=== PATIENT | female | born 1970 | race African-American/Black ===

== ENCOUNTER → 2016-05-19 | Outpatient (CLI) | payer BC ==
[2015-12-31 14:10] VITALS: BP 156/98
[~2016-05-19] MED LIST: CIPR500T94 PO; CYCL10TA2 PO; DOCU-27 PO; GABA-586 PO; HYDR25TA9 PO; cipro
--- NOTE | 2016-05-19 13:58 | RAD ---
DATE: 05/19/16 Exam performed:: Digital diagnostic left mammogram and left breast ultrasound History:: History of left breast mass, 6 months post biopsy Comparison:: Screening bilateral mammogram from 11/15/15 and left breast ultrasound from 11/18/15. Diagnostic left mammogram and limited ultrasound images performed on 12/02/25 were reviewed This study was interpreted with the benefit of Computerized Aided Detection (CAD). Findings: Left breast mammogram. Technique: CC and MLO views of the left breast are obtained. Findings: Nodules seen in the inferior medial left breast is redemonstrated. The biopsy clip is seen adjacent to the nodule. Ultrasound to follow. Left breast ultrasound findings: Sonographic evaluation of the left breast is performed in the inferior medial quadrant and images are obtained. There is a well-defined wider than taller hypoechoic nodule measuring measuring 1.1 x 0.7 cm at 9:30 o'clock position, 6 cm from the nipple.. Biopsy clip is seen adjacent to this nodule. There is also a well-defined hypoechoic wider than taller nodule measuring 1.8 x 1.3 x 0.7 cm in the left axilla. Both these findings are stable IMPRESSION: Hypoechoic nodule at 9:30 o'clock position as well as in the left axilla are stable. Note is made that the nodule at 9:30 o'clock position has been biopsied BI-RADS CATEGORY: 2 BENIGN FINDING(S) RECOMMENDED FOLLOW-UP: 12M 12 MONTH FOLLOW-UP PQRS compliance statement: Patient information was entered into a reminder system with a target due date for the next mammogram. Mammography is a sensitive method for finding small breast cancers, but it does not detect them all and is not a substitute for careful clinical examination. A negative mammogram does not negate a clinically suspicious finding and should not result in delay in biopsying a clinically suspicious abnormality. "Our facility is accredited by the [employer] Mammography Program."
== END | disposition home or self-care (01) ==
LOC: MAMMO 13:02
PROVIDERS: ATTEND Surgery
DX: D24.2 Benign neoplasm of left breast (principal); N63 Unspecified lump in breast
CPT/HCPCS: 76641; G0206; 77065

== ENCOUNTER 2016-10-02 07:24 | Emergency (ER) | payer BC ==
[~2016-10-02 07:24] MED LIST changes: +DOCU-109 PO; -DOCU-27 PO
[2016-10-02 07:39] LABS: BILIRUBIN,URINE NEGATIVE (NEG); GLUCOSE,URINE NEGATIVE (NEG); NITRITE,URINE NEGATIVE (NEG); PH,URINE 6.5; PROTEIN,URINE 30 mg/dL (NEG-TRACE)
--- NOTE | 2016-10-02 07:53 | PHYS DOC ---
Past Medical History Past Medical History: Hypertension Past Surgical History: Cholecystectomy, Hysterectomy, Other Additional Past Surgical Histo: L BREAST BX Alcohol Use: None Drug Use: Marijuana Adult General Chief Complaint Chief Complaint: ABDOMINAL PAIN HPI HPI Patient is a 46 year old female presents to the emergency department with complaints of epigastric discomfort. She states she has had this same pain, constantly, for 4 weeks. Since states that she has increased discomfort in the morning when she drinks coffee or Pepsi. She states that throughout the day as she ingest coffee, soda the pain increases. . She's had previous evaluation in the emergency department as well as at the urgent care and at that time she was diagnosed with urinary tract infection. Patient states that she fears the pain may be caused by her daily use of marijuana. He states that she tried to stop smoking cigarettes and the pain seemed to intensify. She states there is no correlation to the pain with food ingestion or lack of ingestion, use of spicy foods, coffee,etc. She denies alcohol use but does use tobacco. She denies fever , nausea, vomiting, diarrhea. States last normal bowel movement was 2 weeks ago. Review of Systems Review of Systems Constitutional: Denies fever or chills [] Eyes: Denies change in visual acuity, redness, or eye pain [] HENT: Denies nasal congestion or sore throat [] Respiratory: Denies cough or shortness of breath [] Cardiovascular: No additional information not addressed in HPI [] GI: Complains of epigastric burning. Denies nausea, vomiting, bloody stools or diarrhea [] : Denies dysuria or hematuria [] Musculoskeletal: Denies back pain or joint pain [] Integument: Denies rash or skin lesions [] Neurologic: Denies headache, focal weakness or sensory changes [] Endocrine: Denies polyuria or polydipsia [] Current Medications Current Medications Current Medications Medications (Trade) Dose Ordered Sig/Letty Start Time Stop Time Status Last Admin Dose Admin Multi-Ingredient Mouthwash/Gargle (Gi Cocktail Single Dose) 15 ml 1X ONCE 10/02/16 08:00 10/02/16 08:01 DC 10/02/16 07:56 15 ML Allergies Allergies Allergies Coded Allergies Type Severity Reaction Last Updated Verified codeine Allergy Severe Anaphylaxis 12/10/14 Yes Physical Exam Physical Exam Constitutional: Well developed, well nourished, no acute distress, non-toxic appearance. [] HENT: Normocephalic, atraumatic, bilateral external ears normal, oropharynx moist, no oral exudates, nose normal. [] Neck: Normal range of motion, no tenderness, supple Cardiovascular:Heart rate regular rhythm, no murmur [] Lungs & Thorax: Bilateral breath sounds clear to auscultation [] Abdomen: Mild tenderness epigastric region. Bowel sounds normal, soft, no masses, no pulsatile masses. [] Skin: Warm, dry, no erythema, no rash. [] Back: No tenderness, no CVA tenderness. [] Extremities: No tenderness, no cyanosis, no clubbing, ROM intact, no edema. [] Neurologic: Alert and oriented X 3, normal motor function, normal sensory function, no focal deficits noted. [] Psychologic: Affect normal, judgement normal, mood normal. [] Current Patient Data Vital Signs Vital Signs Date Time Temp Pulse Resp B/P (MAP) Pulse Ox O2 Delivery O2 Flow Rate FiO2 10/02/16 07:30 99.2 73 16 158/85 (109) 99 Room Air 99.2 Lab Values Laboratory Tests Test 10/02/16 07:28 Urine Collection Type Void Urine Color Yellow Urine Clarity Clear Urine pH 6.5 Urine Specific [place] 1.020 Urine Protein 30 mg/dL (NEG-TRACE) Urine Glucose (UA) Negative mg/dL (NEG) Urine Ketones (Stick) Negative mg/dL (NEG) Urine Blood Moderate (NEG) Urine Nitrite Negative (NEG) Urine Bilirubin Negative (NEG) Urine Urobilinogen Dipstick 1.0 mg/dL (0.2 mg/dL) Urine Leukocyte Esterase Small (NEG) Urine RBC 20-40 /HPF (0-2) Urine WBC Occ /HPF (0-4) Urine Squamous Epithelial Cells Few /LPF Urine Bacteria 0 /HPF (0-FEW) Urine Mucus Marked /LPF EKG EKG [] Radiology/Procedures Radiology/Procedures [] Course & Med Decision Making Course & Med Decision Making Re-Evaluation: Patient reports complete relief from epigastric discomfort after taking GI cocktail. She has no complaints of abdominal pain, nausea, vomitingPertinent Labs and Imaging studies reviewed. (See chart for details) [] Dragon Disclaimer Dragon Disclaimer This electronic medical record was generated, in whole or in part, using a voice recognition dictation system. Departure Departure Impression: Primary Impression: Gastritis Disposition: 01 HOME, SELF-CARE Condition: STABLE Referrals: EULOGIO WOODS MD (PCP) Patient Instructions: Diet for Peptic Ulcer Disease, Gastrin Scripts Famotidine (PEPCID) 20 Mg Tablet 20 MG PO BID, #60 TAB Prov: EMANI NOEL APRN 10/02/16 Sucralfate (CARAFATE) 1 Gm Tablet 1 TAB PO QID, #120 TAB 1 Refill Prov: EMANI NOEL APRN 10/02/16 EMANI NOEL APRN Oct 02, 2016 07:53
[2016-10-02] MEDS ORDERED: LIDO:MAALOX:DONNATAL 1:1:1 15 ML SINGLE DOSE SWSW ONE (08:00)
[2016-10-02 08:09] LABS: BACTERIA,URINE 0 /HPF (0-FEW); RBC,URINE 20-40 /HPF (0-2); SQUAMOUS EPITHELIAL CELL,UR FEW /LPF; WBC,URINE OCC /HPF (0-4)
[2016-10-02] MEDS ORDERED: SUCR1TAB35 PO (08:17)
[2016-10-02] MEDS ORDERED: FAMO-63 PO (08:17)
[2016-10-02 08:29] VITALS: BP 145/104
[2016-10-02 09:06] LABS: NEG OBC UR NEG; POS OBC UR POS
== END 2016-10-02 08:30 | disposition home or self-care (01) ==
LOC: ER 07:24
DX: K29.70 Gastritis, unspecified, without bleeding (principal); I10 Essential (primary) hypertension; F12.10 Cannabis abuse, uncomplicated; F17.210 Nicotine dependence, cigarettes, uncomplicated; Z88.5 Allergy status to narcotic agent; Z90.49 Acquired absence of other specified parts of digestive tract; Z90.710 Acquired absence of both cervix and uterus
CPT/HCPCS: 81001; 81025; 99283

== ENCOUNTER 2017-03-12 08:44 | Emergency (ER) | payer BC ==
[~2017-03-12 08:44] MED LIST changes: +FAMO-63 PO; +SUCR1TAB35 PO
[2017-03-12] MEDS ORDERED: ASPIRIN 325 MG TABLET PO ONE (09:00)
--- NOTE | 2017-03-12 09:03 | PHYS DOC ---
Past Medical History Past Medical History: Hypertension Past Surgical History: Cholecystectomy, Hysterectomy, Other Additional Past Surgical Histo: L BREAST BX Alcohol Use: None Drug Use: Marijuana Adult General Chief Complaint Chief Complaint: CHEST PAIN HPI HPI Patient is a 46 year old female with history of hypertension smoking addiction who presents today with a sharp 6 out of 10 left-sided chest pain that began 2 days ago. Patient states the pain radiates to the left lateral neck as well as left shoulder. Patient states the pain is worsened with coughing, deep breaths. Patient states she is also been coughing for the last 2 weeks. Patient denies any fever. Denies any shortness of breath. Patient denies anything alleviating her pain. Review of Systems Review of Systems Constitutional: Denies fever or chills [] Eyes: Denies change in visual acuity, redness, or eye pain [] HENT: Denies nasal congestion or sore throat [] Respiratory: cough denies shortness of breath [] Cardiovascular: Left chest pain radiating to the left upper extremity. GI: Denies abdominal pain, nausea, vomiting, bloody stools or diarrhea [] : Denies dysuria or hematuria [] Musculoskeletal: Denies back pain or joint pain [] Integument: Denies rash or skin lesions [] Neurologic: Denies headache, focal weakness or sensory changes [] All other systems were reviewed and found to be within normal limits, except as documented in this note. Current Medications Current Medications Current Medications Medications (Trade) Dose Ordered Sig/[facility] Start Time Stop Time Status Last Admin Dose Admin Aspirin (Jung Aspirin) 325 mg 1X ONCE 03/12/17 09:00 03/12/17 09:01 DC 03/12/17 10:07 325 MG Allergies Allergies Allergies Coded Allergies Type Severity Reaction Last Updated Verified codeine Allergy Severe Anaphylaxis 12/10/14 Yes Physical Exam Physical Exam Constitutional: Well developed, well nourished, no acute distress, non-toxic appearance. [] HENT: Normocephalic, atraumatic, bilateral external ears normal, oropharynx moist, no oral exudates, nose normal. [] Eyes: PERRLA, EOMI, conjunctiva normal, no discharge. [] Neck: Normal range of motion, no tenderness, supple, no stridor. [] Cardiovascular:Heart rate regular rhythm, no murmur [] Lungs & Thorax: Bilateral breath sounds clear to auscultation [] Abdomen: Bowel sounds normal, soft, no tenderness, no masses, no pulsatile masses. [] Skin: Warm, dry, no erythema, no rash. [] Back: No tenderness, no CVA tenderness. [] Extremities: No tenderness, no cyanosis, no clubbing, ROM intact, no edema. [] Neurologic: Alert and oriented X 3, normal motor function, normal sensory function, no focal deficits noted. [] Psychologic: Affect normal, judgement normal, mood normal. [] Current Patient Data Vital Signs Vital Signs Date Time Temp Pulse Resp B/P (MAP) Pulse Ox O2 Delivery O2 Flow Rate FiO2 03/12/17 10:06 68 18 163/83 (109) 97 Room Air 03/12/17 08:57 98.1 98.1 Lab Values Laboratory Tests Test 03/12/17 09:12 03/12/17 09:32 White Blood Count 12.8 x10^3/uL (4.0-11.0) H Red Blood Count 4.64 x10^6/uL (3.50-5.40) Hemoglobin 15.1 g/dL (12.0-15.5) Hematocrit 43.9 % (36.0-47.0) Mean Corpuscular Volume 95 fL (79-100) Mean Corpuscular Hemoglobin 33 pg (25-35) Mean Corpuscular Hemoglobin Concent 34 g/dL (31-37) Red Cell Distribution Width 13.4 % (11.5-14.5) Platelet Count 373 x10^3/uL (140-400) Neutrophils (%) (Auto) 64 % (31-73) Lymphocytes (%) (Auto) 31 % (24-48) Monocytes (%) (Auto) 4 % (0-9) Eosinophils (%) (Auto) 1 % (0-3) Basophils (%) (Auto) 1 % (0-3) Neutrophils # (Auto) 8.1 x10^3uL (1.8-7.7) H Lymphocytes # (Auto) 4.0 x10^3/uL (1.0-4.8) Monocytes # (Auto) 0.5 x10^3/uL (0.0-1.1) Eosinophils # (Auto) 0.2 x10^3/uL (0.0-0.7) Basophils # (Auto) 0.1 x10^3/uL (0.0-0.2) Prothrombin Time 11.9 SEC (11.7-14.0) Prothrombin Time INR 0.9 (0.8-1.1) D-Dimer (Randi) 0.28 ug/mlFEU (0.00-0.50) Sodium Level 137 mmol/L (136-145) Potassium Level 3.8 mmol/L (3.5-5.1) Chloride Level 105 mmol/L (98-107) Carbon Dioxide Level 25 mmol/L (21-32) Anion Gap 7 (6-14) Blood Urea Nitrogen 7 mg/dL (7-20) Creatinine 0.6 mg/dL (0.6-1.0) Estimated GFR (Cockcroft-Gault) 130.8 BUN/Creatinine Ratio 12 (6-20) Glucose Level 89 mg/dL (70-99) Calcium Level 9.0 mg/dL (8.5-10.1) Magnesium Level 1.9 mg/dL (1.8-2.4) Total Bilirubin 0.4 mg/dL (0.2-1.0) Aspartate Amino Transferase (AST) 16 U/L (15-37) Alanine Aminotransferase (ALT) 19 U/L (14-59) Alkaline Phosphatase 144 U/L (46-116) H Creatine Kinase 156 U/L (26-192) Creatine Kinase MB (Mass) 0.5 ng/mL (0.0-3.6) Creatine Kinase MB Relative Index 0.3 % (0-4) Troponin I Quantitative < 0.017 ng/mL (0.000-0.055) UA-Gzo-K-Type Natriuretic Peptide 70 pg/mL (0-124) Total Protein 7.4 g/dL (6.4-8.2) Albumin 3.9 g/dL (3.4-5.0) Albumin/Globulin Ratio 1.1 (1.0-1.7) Thyroid Stimulating Hormone (TSH) 0.712 uIU/mL (0.358-3.74) Urine Collection Type Unknown Urine Color Yellow Urine Clarity Clear Urine pH 7.0 Urine Specific [place] 1.015 Urine Protein Negative mg/dL (NEG-TRACE) Urine Glucose (UA) Negative mg/dL (NEG) Urine Ketones (Stick) Negative mg/dL (NEG) Urine Blood Large (NEG) Urine Nitrite Negative (NEG) Urine Bilirubin Negative (NEG) Urine Urobilinogen Dipstick 1.0 mg/dL (0.2 mg/dL) Urine Leukocyte Esterase Negative (NEG) Urine RBC 11-20 /HPF (0-2) Urine WBC 0 /HPF (0-4) Urine Bacteria 0 /HPF (0-FEW) Urine Opiates Screen Neg (NEG) Urine Methadone Screen Neg (NEG) Urine Barbiturates Neg (NEG) Urine Phencyclidine Screen Neg (NEG) Urine Amphetamine/Methamphetamine Neg (NEG) Urine Benzodiazepines Screen Neg (NEG) Urine Cocaine Screen Neg (NEG) Urine Cannabinoids Screen Pos (NEG) Urine Ethyl Alcohol Neg (NEG) Laboratory Tests 03/12/17 09:12 Laboratory Tests 03/12/17 09:12 EKG EKG 08:[address] Arenas sinus rhythm heart rate 68 QRS interval 84 no STEMI Radiology/Procedures Radiology/Procedures []PROCEDURE: PORTABLE CHEST 1V Chest x-ray Indication: Chest pain, cough and shortness of breath for 2 days. Technique: Portable AP upright chest x-ray Comparison: Previous study from 2013. Findings: Heart is top normal in size. Lungs are clear. No pneumothorax or pleural effusion. Visualized bony thorax is within normal limits. Impression: No acute cardiopulmonary process. DICTATED and SIGNED BY: ISIDORO MARSHALL DO DATE: 03/12/17918 CC: EULOGIO WOODS MD; ALISTAIR ZAVALA APRN ~ Course & Med Decision Making Course & Med Decision Making Pertinent Labs and Imaging studies reviewed. (See chart for details) This is a 46 year old female with history of smoking who presents today with left-sided chest pain radiating to the left upper extremity that began 2 days ago. Patient's also complaining of a cough for 2 weeks. Patient was encouraged to consider smoking cessation. Cardiac workup was initiated. Normal EKG documented. Patient has history of smoking and was encouraged to consider smoking cessation. Cardiac workup is negative. Chest x-ray is negative for any acute findings. Consulted with Dr. Conner, she requested patient to be discharged and follow-up with the clinic as soon as possible. Patient was discharged with Tessalon Perles and albuterol inhaler. She is also put on prednisone for 5 days. Dragon Disclaimer Dragon Disclaimer This electronic medical record was generated, in whole or in part, using a voice recognition dictation system. Departure Departure Impression: Primary Impression: Chest pain Additional Impressions: Acute bronchitis Smoking addiction Disposition: ADMITTED INPATIENT Condition: STABLE Referrals: UELOGIO WOODS MD (PCP) Call her office today and set up a follow-up appointment as soon as possible Patient Instructions: Acute Bronchitis, Chest Pain (Nonspecific), Smoking Cessation Additional Instructions: You were seen for chest pain and a cough. Your cardiac workup is negative. We encourage you to consider smoking cessation. Please contact your primary care doctor's office today and set up a follow-up appointment. Please consider smoking cessation. Take the prescribed medicines as ordered. Come back to the ED at any point your symptoms worsen. Scripts Prednisone (PREDNISONE) 50 Mg Tablet 1 TAB PO DAILY, #5 TAB Prov: ALISTAIR ZAVALA APRN 03/12/17 Benzonatate (TESSALON PERLE) 100 Mg Capsule 1 CAP PO TID, #30 CAP Prov: ALISTAIR ZAVALA APRN 03/12/17 Albuterol Sulfate (Proair Respiclick) 90 Mcg Aer.pow.ba 1 PUFF IH PRN Q6HRS Y for SHORTNESS OF BREATH, #1 INHALER Prov: ALISTAIR ZAVALA APRN 03/12/17 Problem Qualifiers Primary Impression: Chest pain Chest pain type: unspecified Qualified Codes: R07.9 - Chest pain, unspecified Additional Impressions: Acute bronchitis Bronchitis organism: unspecified organism Qualified Codes: J20.9 - Acute bronchitis, unspecified ALISTAIR ZAVALA APRN Mar 12, 2017 09:03
[2017-03-12 09:21] LABS: BASO # 0.1 x10^3/uL (0.0-0.2); BASO % 1 % (0-3); EOS % 1 % (0-3); HEMATOCRIT 43.9 % (36.0-47.0); HEMOGLOBIN 15.1 g/dL (12.0-15.5); LYMPH % 31 % (24-48); MEAN CORPUSCULAR HEMOGLOBIN 33 pg (25-35); MEAN CORPUSCULAR HGB CONC 34 g/dL (31-37); MEAN CORPUSCULAR VOLUME 95 fL (79-100); MONO % 4 % (0-9); NEUT % 64 % (31-73); PLATELET COUNT 373 x10^3/uL (140-400); RED BLOOD COUNT 4.64 x10^6/uL (3.50-5.40); RED CELL DISTRIBUTION WIDTH 13.4 % (11.5-14.5); WHITE BLOOD COUNT 12.8 x10^3/uL (4.0-11.0)
--- NOTE | 2017-03-12 09:24 | RAD ---
Chest x-ray Indication: Chest pain, cough and shortness of breath for 2 days. Technique: Portable AP upright chest x-ray Comparison: Previous study from 2014. Findings: Heart is top normal in size. Lungs are clear. No pneumothorax or pleural effusion. Visualized bony thorax is within normal limits. Impression: No acute cardiopulmonary process.
[2017-03-12 09:37] LABS: CREATININE 0.6 mg/dL (0.6-1.0); GFR 130.8; POTASSIUM 3.8 mmol/L (3.5-5.1)
[2017-03-12 09:39] LABS: ALBUMIN 3.9 g/dL (3.4-5.0); ALBUMIN/GLOBULIN RATIO 1.1 (1.0-1.7); MAGNESIUM 1.9 mg/dL (1.8-2.4); TOTAL BILIRUBIN 0.4 mg/dL (0.2-1.0); TOTAL PROTEIN 7.4 g/dL (6.4-8.2)
[2017-03-12 09:42] LABS: INR 0.9 (0.8-1.1); PROTHROMBIN TIME PATIENT 11.9 SEC (11.7-14.0)
[2017-03-12 09:44] LABS: BILIRUBIN,URINE NEGATIVE (NEG); GLUCOSE,URINE NEGATIVE (NEG); NITRITE,URINE NEGATIVE (NEG); PROTEIN,URINE NEGATIVE (NEG-TRACE)
[2017-03-12 09:48] LABS: CKMB MASS 0.5 ng/mL (0.0-3.6)
[2017-03-12 09:54] LABS: BARBITURATES NEG (NEG); BENZODIAZEPINES NEG (NEG); CANNABINOIDS POS (NEG); COCAINE NEG (NEG); METHADONE NEG (NEG); OPIATES NEG (NEG); PHENCYCLIDINE NEG (NEG)
[2017-03-12 09:55] LABS: BACTERIA,URINE 0 /HPF (0-FEW); WBC,URINE 0 /HPF (0-4)
--- NOTE | 2017-03-12 10:51 | EKG ---
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
[2017-03-12] MEDS ORDERED: PRED50TA PO (11:14)
[2017-03-12] MEDS ORDERED: PROAIR RESPICL90 MCG IH (11:14)
[2017-03-12] MEDS ORDERED: BENZ100C PO (11:14)
[2017-03-12 11:20] VITALS: BP 151/70
== END 2017-03-12 11:32 | disposition home or self-care (01) ==
LOC: ER 08:44
DX: R07.89 Other chest pain (principal); J20.9 Acute bronchitis, unspecified; F17.200 Nicotine dependence, unspecified, uncomplicated; I10 Essential (primary) hypertension; Z90.49 Acquired absence of other specified parts of digestive tract; Z90.710 Acquired absence of both cervix and uterus; Z88.5 Allergy status to narcotic agent
CPT/HCPCS: 36415; 71010; 80053; 80307; 81001; 82553; 83735; 83880; 84443; 84484; 85025; 85379; 85610; 93005; 99285-25; G0479

== ENCOUNTER 2017-11-23 07:51 | Emergency (ER) | payer BC ==
[2017-11-23 08:10] LABS: URINE HCG POC HCG NEGATIVE (Negative)
[2017-11-23 08:13] LABS: BILIRUBIN,URINE NEGATIVE (NEG); CLARITY,URINE CLEAR; COLOR,URINE YELLOW; GLUCOSE,URINE NEGATIVE (NEG); NITRITE,URINE NEGATIVE (NEG); PROTEIN,URINE 30 mg/dL (NEG-TRACE)
[2017-11-23 08:15] LABS: ADD MAN DIFF? NO
[2017-11-23 08:22] LABS: BARBITURATES NEG (NEG); BENZODIAZEPINES NEG (NEG); CANNABINOIDS POS (NEG); COCAINE NEG (NEG); METHADONE NEG (NEG); OPIATES NEG (NEG); PHENCYCLIDINE NEG (NEG)
[2017-11-23 08:23] LABS: AMPHETAMINE/METHAMPHETAMINE NEG (NEG); BASO # 0.1 x10^3/uL (0.0-0.2); BASO % 1 % (0-3); EOS # 0.2 x10^3/uL (0.0-0.7); EOS % 1 % (0-3); ETHANOL, URINE NEG (NEG); HEMATOCRIT 45.7 % (36.0-47.0); HEMOGLOBIN 15.7 g/dL (12.0-15.5); LYMPH # 3.8 x10^3/uL (1.0-4.8); LYMPH % 28 % (24-48); MEAN CORPUSCULAR HEMOGLOBIN 33 pg (25-35); MEAN CORPUSCULAR HGB CONC 34 g/dL (31-37); MEAN CORPUSCULAR VOLUME 95 fL (79-100); MONO # 0.5 x10^3/uL (0.0-1.1); MONO % 4 % (0-9); NEUT # 9.1 x10^3uL (1.8-7.7); NEUT % 66 % (31-73); PLATELET COUNT 406 x10^3/uL (140-400); RED BLOOD COUNT 4.84 x10^6/uL (3.50-5.40); RED CELL DISTRIBUTION WIDTH 13.5 % (11.5-14.5); WHITE BLOOD COUNT 13.7 x10^3/uL (4.0-11.0)
[2017-11-23 08:28] LABS: ANION GAP 7 (6-14); BLOOD UREA NITROGEN 7 mg/dL (7-20); BUN/CREATININE RATIO 10 (6-20); CALCIUM 8.8 mg/dL (8.5-10.1); CARBON DIOXIDE 28 mmol/L (21-32); CHLORIDE 105 mmol/L (98-107); CREATININE 0.7 mg/dL (0.6-1.0); GLUCOSE 104 mg/dL (70-99); POTASSIUM 3.7 mmol/L (3.5-5.1); SODIUM 140 mmol/L (136-145)
[2017-11-23] MEDS ORDERED: CONTRAST GIVEN. MC (08:30)
[2017-11-23 08:32] LABS: BACTERIA,URINE FEW /HPF (0-FEW); SQUAMOUS EPITHELIAL CELL,UR OCC /LPF
[2017-11-23 08:34] LABS: ALBUMIN 3.6 g/dL (3.4-5.0); ALBUMIN/GLOBULIN RATIO 0.9 (1.0-1.7); ALK PHOS 146 U/L (46-116); ALT (SGPT) 25 U/L (14-59); AST (SGOT) 20 U/L (15-37); LIPASE 124 U/L (73-393); TOTAL BILIRUBIN 0.4 mg/dL (0.2-1.0); TOTAL PROTEIN 7.6 g/dL (6.4-8.2)
[2017-11-23 09:11] LABS: TROPONINI < 0.017 ng/mL (0.000-0.055)
[2017-11-23] MEDS: IOHEXOL 240 MG/ML 50ML VIAL. PO (09:36)
[2017-11-23] MEDS: IOHEXOL 300 MG/ML 100ML VIAL. IV (09:36)
== END 2017-11-23 10:46 | disposition home or self-care (01) ==
LOC: ER 07:51
DX: G89.29 Other chronic pain (principal); R10.13 Epigastric pain; R11.2 Nausea with vomiting, unspecified; R31.9 Hematuria, unspecified; D75.1 Secondary polycythemia; Z71.6 Tobacco abuse counseling; K59.00 Constipation, unspecified; I10 Essential (primary) hypertension; Z90.49 Acquired absence of other specified parts of digestive tract; Z90.710 Acquired absence of both cervix and uterus; Z88.5 Allergy status to narcotic agent
CPT/HCPCS: 36415; 74177; 80053; 80307; 81001; 81025; 83690; 84484; 85025; 87086; 99285-25; Q9966; Q9967

== ENCOUNTER 2018-01-03 10:21 | Emergency (ER) | payer BC ==
[~2018-01-03] VITALS: Ht 170.2 cm; Wt 84.8 kg
[~2018-01-03 10:21] MED LIST changes: +BENZ100C PO; +MAGN296S9 PO; +PRED50TA PO; +PROAIR RESPICL90 MCG IH; +Percogesic PO; +RANI150T21 PO
[2018-01-03 10:45] VITALS: BP 147/83
[2018-01-03] MEDS ORDERED: HYDROcodone/APAP 5/325MG 1 TAB TABLET ONE (11:44)
[2018-01-03] MEDS ORDERED: IBUPROFEN 800 MG TABLET. PO ONE (11:45)
--- NOTE | 2018-01-03 11:49 | RAD ---
EXAM: Left elbow, 2 views. HISTORY: Nontraumatic pain and swelling. COMPARISON: None. FINDINGS: 2 views left elbow are obtained. There is no fracture, dislocation or subluxation. There is no joint effusion. IMPRESSION: No acute osseous finding. Electronically signed by: So Mackey MD (01/03/2018 11:46 AM) [facility]
--- NOTE | 2018-01-03 11:50 | RAD ---
EXAM: 2 views left wrist DATE: 01/03/2018 11:29 AM INDICATION: NO TRAUMA, LEFT WRIST PAIN COMPARISON: No Prior FINDINGS/ IMPRESSION: No evidence of acute fracture or dislocation. Joint spaces are preserved without significant degenerative/proliferative change. No significant soft tissue swelling. Electronically signed by: Anton Denise MD (01/03/2018 11:46 AM) [id number]
[2018-01-03] MEDS ORDERED: HYDROcodone/APAP 5/325MG 1 TAB TABLET PO ONE (12:00)
[2018-01-03] MEDS ORDERED: HYDR-971 PO (12:14)
[2018-01-03] MEDS ORDERED: IBUP-1060 PO (12:14)
--- NOTE | 2018-01-03 12:43 | PHYS DOC ---
Past Medical History Past Medical History: Hypertension, Other Additional Past Medical Histor: NEUROPATHY Past Surgical History: Cholecystectomy, Hysterectomy, Other Additional Past Surgical Histo: L BREAST BX Additional Information: 1 ppd Alcohol Use: None Drug Use: None Adult General Chief Complaint Chief Complaint: UPPER EXTREMITY PAIN [facility] HPI Patient is a 47 year old female who presents with left arm pain. The patient does have a known history of neuropathy, normally in the lower extremities. She states she awoke this morning having pain in the left arm that feels similar to her neuropathy symptoms. Pain is located from the elbow along the ulnar aspect and into the wrist. She awoke this morning with the pain and did not have any recent trauma or overuse or strenuous activity. She has not had a fever or chills. She denies additional symptoms today. Review of Systems Review of Systems Constitutional: Denies fever Eyes: Denies change in visual acuity HENT: Denies nasal congestion Respiratory: Denies cough or shortness of breath Cardiovascular: No additional information not addressed in HPI Musculoskeletal: Denies back pain or joint pain Integument: Denies rash Neurologic: Denies headache All other systems were reviewed and found to be within normal limits, except as documented in this note. Current Medications Current Medications Current Medications Medications (Trade) Dose Ordered Sig/Letty Start Time Stop Time Status Last Admin Dose Admin Acetaminophen/ Hydrocodone Bitart (Lortab 5/325) 1 tab STK-MED ONCE 01/03/18 11:44 01/03/18 11:45 DC Ibuprofen (Motrin) 800 mg 1X ONCE 01/03/18 11:45 01/03/18 11:46 DC 01/03/18 11:43 800 MG Allergies Allergies Allergies Coded Allergies Type Severity Reaction Last Updated Verified codeine Allergy Severe Anaphylaxis 01/03/18 Yes Physical Exam Physical Exam Constitutional: Well developed, well nourished, no acute distress, non-toxic appearance HENT: Normocephalic, atraumatic, bilateral external ears normal, oropharynx moist Eyes: PERRLA, EOMI, conjunctiva normal Neck: Normal range of motion Cardiovascular:Heart rate regular rhythm Lungs & Thorax: Bilateral breath sounds clear to auscultation Abdomen: Bowel sounds normal, soft Skin: Warm, dry, no erythema Extremities: normal exam of the left upper extremity other than some soft tissue swelling about the wrist. Distal capillary refill is less than 2 seconds. Sensation to light touch is intact over all dermatomes. She has 5 over 5 motor strength. Neurologic: Alert and oriented X 3 Psychologic: Affect normal Current Patient Data Vital Signs Vital Signs Date Time Temp Pulse Resp B/P (MAP) Pulse Ox O2 Delivery O2 Flow Rate FiO2 01/03/18 11:45 18 Room Air 01/03/18 10:45 98.0 64 147/83 (104) 100 98.0 EKG EKG [] Radiology/Procedures Radiology/Procedures [] Course & Med Decision Making Course & Med Decision Making Pertinent Labs and Imaging studies reviewed. (See chart for details) Patient is evaluated in the fast track for atraumatic left arm pain. Overall, her physical exam is benign. Plain film imaging is negative. There are no signs of joint inflammation. There are no signs of septic joint. Plan is for discharge home. The patient is given ibuprofen and [place] for severe pain. She is advised to follow-up with her primary care doctor. Dragon Disclaimer Dragon Disclaimer This electronic medical record was generated, in whole or in part, using a voice recognition dictation system. Departure Departure Impression: Primary Impression: Arm pain Disposition: 01 HOME, SELF-CARE Condition: GOOD Patient Instructions: Contusion Scripts Hydrocodone/Apap 5-325 (NORCO 5-325 TABLET) 1 Each Tablet 1-2 EACH PO PRN Q6HRS PRN for severe pain, #20 as needed for pain Prov: ANDREINA MOYA DO 01/03/18 Ibuprofen (IBUPROFEN) 800 Mg Tablet 800 MG PO PRN TID PRN for PAIN, #30 TAB take with food or milk to avoid upsetting stomach Prov: ANDREINA MOYA DO 01/03/18 ANDREINA MOYA DO Jan 03, 2018 12:43
== END 2018-01-03 12:49 | disposition home or self-care (01) ==
LOC: ER 10:21
DX: M79.602 Pain in left arm (principal); I10 Essential (primary) hypertension; F17.200 Nicotine dependence, unspecified, uncomplicated; Z90.49 Acquired absence of other specified parts of digestive tract; Z90.710 Acquired absence of both cervix and uterus; Z88.5 Allergy status to narcotic agent
CPT/HCPCS: 73070; 73100; 99284

== ENCOUNTER 2019-02-24 17:16 | Emergency (ER) | payer BC ==
[~2019-02-24] VITALS: Ht 167.6 cm; Wt 79.4 kg
[~2019-02-24 17:16] MED LIST changes: -GABA-586 PO; +GABA300C18 PO; +HYDR-2145 PO; +HYDR-3164 PO; -HYDR25TA9 PO; +IBUP-1060 PO; +RANI-376 PO; -RANI150T21 PO
[2019-02-24] MEDS ORDERED: methylPREDNISolone SOD SUCC PF 125 MG/2 ML VIAL. IV ONE (18:15)
[2019-02-24] MEDS ORDERED: ALBUTEROL SULFATE 2.5 MG/3 ML NEBU. NEB ONE (18:15)
[2019-02-24] MEDS ORDERED: IV NORMAL SALINE 1000ML BAG 1,000 ML IV ONE (18:15)
--- NOTE | 2019-02-24 18:17 | PHYS DOC ---
Past Medical History Past Medical History: Hypertension, Other Additional Past Medical Histor: NEUROPATHY (DEJON BAUER APRN) Past Surgical History: Cholecystectomy, Hysterectomy, Other Additional Past Surgical Histo: L BREAST BX (DEJON BAUER APRN) Alcohol Use: None Drug Use: None (DEJON BAUER APRN) Adult General Chief Complaint Chief Complaint: CHEST WALL PAIN HPI HPI Patient is a 48 year old AA female who presents to the emergency department with complaints of right sided chest pain that began today. Patient states that the pain increases when she takes a deep breath and radiates through to her right shoulder. She denies any palpitations, nausea, vomiting, shortness of breath, diaphoresis, abdominal pain, wheezing, cough, or fever. Patient currently rates the pain a 10 out of 10 on the pain scale, there are no alleviating factors, the pain increases with palpation and deep breathing only. Patient denies any known recent sick contacts. (DEJON BAUER APRN) Review of Systems Review of Systems Constitutional: Denies fever or chills [] Eyes: Denies redness, or eye pain [] HENT: Denies nasal congestion or sore throat [] Respiratory: Denies cough, wheezing, or shortness of breath; see history of present illness [] Cardiovascular: No additional information not addressed in HPI [] GI: Denies abdominal pain, nausea, vomiting, or diarrhea [] : Denies dysuria or hematuria [] Musculoskeletal: Denies back pain or joint pain [] Integument: Denies rash or skin lesions [] Neurologic: Denies headache Complete systems were reviewed and found to be within normal limits, except as documented in this note. (DEJON BAUER APRN) Current Medications Current Medications Current Medications Medications (Trade) Dose Ordered Sig/Letty Start Time Stop Time Status Last Admin Dose Admin Albuterol Sulfate (Ventolin Neb Soln) 2.5 mg 1X ONCE 02/24/19 18:15 02/24/19 18:16 DC 02/24/19 18:29 2.5 MG Fentanyl Citrate (Fentanyl 2ml Vial) 50 mcg 1X ONCE 02/24/19 20:00 02/24/19 20:04 DC Methylprednisolone Sodium Succinate (SOLU-Medrol 125MG VIAL) 125 mg 1X ONCE 02/24/19 18:15 02/24/19 18:16 DC 02/24/19 19:11 125 MG Morphine Sulfate (Morphine Sulfate) 5 mg 1X ONCE 02/24/19 19:00 02/24/19 19:01 DC 02/24/19 19:13 5 MG Ondansetron HCl (Zofran) 4 mg 1X ONCE 02/24/19 19:00 02/24/19 19:01 DC 02/24/19 19:11 4 MG Sodium Chloride 1,000 ml @ 1,000 mls/hr 1X ONCE 02/24/19 18:15 02/24/19 19:14 DC 02/24/19 19:11 1,000 MLS/HR (LEONIDES LITTLE MD) Allergies Allergies Allergies Coded Allergies Type Severity Reaction Last Updated Verified codeine Allergy Severe Anaphylaxis 01/03/18 Yes (LEONIDES LITTLE MD) Physical Exam Physical Exam Constitutional: Well developed, well nourished, no acute distress, non-toxic appearance. [] HENT: Normocephalic, atraumatic, bilateral external ears normal, oropharynx moist, no oral exudates, nose normal. [] Eyes: PERRLA, EOMI, conjunctiva normal, no discharge. [] Neck: Normal range of motion, no stridor. [] Cardiovascular:Heart rate regular rhythm, no murmur [] Lungs & Thorax: Bilateral breath sounds clear to auscultation; right chest wall tender to palpation [] Abdomen: soft, no tenderness Skin: Warm, dry, no erythema, no rash. [] Back: No tenderness, Extremities: No cyanosis, no clubbing, ROM intact, no edema. [] Neurologic: Alert and oriented X 3, no focal deficits noted. [] Psychologic: Affect normal, judgement normal, mood normal. [] (DEJON BAUER APRN) Current Patient Data Vital Signs Vital Signs Date Time Temp Pulse Resp B/P (MAP) Pulse Ox O2 Delivery O2 Flow Rate FiO2 02/24/19 20:42 72 20 131/76 (94) 98 Room Air 02/24/19 17:30 98.9 98.9 (LEONIDES LITTLE MD) Lab Values Laboratory Tests Test 02/24/19 17:30 02/24/19 18:31 02/24/19 18:45 11/11/19 19:15 White Blood Count 15.6 x10^3/uL (4.0-11.0) H Red Blood Count 4.84 x10^6/uL (3.50-5.40) Hemoglobin 15.5 g/dL (12.0-15.5) Hematocrit 46.2 % (36.0-47.0) Mean Corpuscular Volume 95 fL (79-100) Mean Corpuscular Hemoglobin 32 pg (25-35) Mean Corpuscular Hemoglobin Concent 34 g/dL (31-37) Red Cell Distribution Width 13.5 % (11.5-14.5) Platelet Count 358 x10^3/uL (140-400) Neutrophils (%) (Auto) 58 % (31-73) Lymphocytes (%) (Auto) 35 % (24-48) Monocytes (%) (Auto) 5 % (0-9) Eosinophils (%) (Auto) 1 % (0-3) Basophils (%) (Auto) 1 % (0-3) Neutrophils # (Auto) 9.1 x10^3/uL (1.8-7.7) H Lymphocytes # (Auto) 5.5 x10^3/uL (1.0-4.8) H Monocytes # (Auto) 0.8 x10^3/uL (0.0-1.1) Eosinophils # (Auto) 0.2 x10^3/uL (0.0-0.7) Basophils # (Auto) 0.1 x10^3/uL (0.0-0.2) Prothrombin Time 12.1 SEC (11.7-14.0) Prothrombin Time INR 0.9 (0.8-1.1) Activated Partial Thromboplast Time 29 SEC (24-38) Lipase 162 U/L (73-393) Sodium Level 142 mmol/L (136-145) Potassium Level 3.5 mmol/L (3.5-5.1) Chloride Level 106 mmol/L (98-107) Carbon Dioxide Level 29 mmol/L (21-32) Anion Gap 7 (6-14) Blood Urea Nitrogen 12 mg/dL (7-20) Creatinine 0.8 mg/dL (0.6-1.0) Estimated GFR (Cockcroft-Gault) 93.0 BUN/Creatinine Ratio 15 (6-20) Glucose Level 89 mg/dL (70-99) Calcium Level 8.9 mg/dL (8.5-10.1) Total Bilirubin 0.4 mg/dL (0.2-1.0) Aspartate Amino Transferase (AST) 16 U/L (15-37) Alanine Aminotransferase (ALT) 18 U/L (14-59) Alkaline Phosphatase 137 U/L (46-116) H Creatine Kinase 101 U/L (26-192) Creatine Kinase MB (Mass) 0.5 ng/mL (0.0-3.6) Creatine Kinase MB Relative Index 0.5 % (0-4) Troponin I Quantitative < 0.017 ng/mL (0.000-0.055) Total Protein 7.7 g/dL (6.4-8.2) Albumin 3.5 g/dL (3.4-5.0) Albumin/Globulin Ratio 0.8 (1.0-1.7) L Urine Collection Type Unknown Urine Color Yellow Urine Clarity Cloudy Urine pH 7.5 Urine Specific [place] 1.020 Urine Protein Negative mg/dL (NEG-TRACE) Urine Glucose (UA) Negative mg/dL (NEG) Urine Ketones (Stick) Negative mg/dL (NEG) Urine Blood Moderate (NEG) Urine Nitrite Negative (NEG) Urine Bilirubin Negative (NEG) Urine Urobilinogen Dipstick 1.0 mg/dL (0.2 mg/dL) Urine Leukocyte Esterase Negative (NEG) Urine RBC 11-20 /HPF (0-2) Urine WBC 0 /HPF (0-4) Urine Squamous Epithelial Cells Few /LPF Urine Amorphous Sediment Present /HPF Urine Bacteria 0 /HPF (0-FEW) Urine Mucus Slight /LPF Laboratory Tests 02/24/19 17:30 Laboratory Tests 02/24/19 18:45 (LEONIDES LITTLE MD) Lab Values Laboratory Tests Test 02/24/19 17:30 02/24/19 18:31 02/24/19 18:45 02/24/19 19:15 White Blood Count 15.6 x10^3/uL (4.0-11.0) H Red Blood Count 4.84 x10^6/uL (3.50-5.40) Hemoglobin 15.5 g/dL (12.0-15.5) Hematocrit 46.2 % (36.0-47.0) Mean Corpuscular Volume 95 fL (79-100) Mean Corpuscular Hemoglobin 32 pg (25-35) Mean Corpuscular Hemoglobin Concent 34 g/dL (31-37) Red Cell Distribution Width 13.5 % (11.5-14.5) Platelet Count 358 x10^3/uL (140-400) Neutrophils (%) (Auto) 58 % (31-73) Lymphocytes (%) (Auto) 35 % (24-48) Monocytes (%) (Auto) 5 % (0-9) Eosinophils (%) (Auto) 1 % (0-3) Basophils (%) (Auto) 1 % (0-3) Neutrophils # (Auto) 9.1 x10^3/uL (1.8-7.7) H Lymphocytes # (Auto) 5.5 x10^3/uL (1.0-4.8) H Monocytes # (Auto) 0.8 x10^3/uL (0.0-1.1) Eosinophils # (Auto) 0.2 x10^3/uL (0.0-0.7) Basophils # (Auto) 0.1 x10^3/uL (0.0-0.2) Prothrombin Time 12.1 SEC (11.7-14.0) Prothrombin Time INR 0.9 (0.8-1.1) Activated Partial Thromboplast Time 29 SEC (24-38) Lipase 162 U/L (73-393) Sodium Level 142 mmol/L (136-145) Potassium Level 3.5 mmol/L (3.5-5.1) Chloride Level 106 mmol/L (98-107) Carbon Dioxide Level 29 mmol/L (21-32) Anion Gap 7 (6-14) Blood Urea Nitrogen 12 mg/dL (7-20) Creatinine 0.8 mg/dL (0.6-1.0) Estimated GFR (Cockcroft-Gault) 93.0 BUN/Creatinine Ratio 15 (6-20) Glucose Level 89 mg/dL (70-99) Calcium Level 8.9 mg/dL (8.5-10.1) Total Bilirubin 0.4 mg/dL (0.2-1.0) Aspartate Amino Transferase (AST) 16 U/L (15-37) Alanine Aminotransferase (ALT) 18 U/L (14-59) Alkaline Phosphatase 137 U/L (46-116) H Creatine Kinase 101 U/L (26-192) Creatine Kinase MB (Mass) 0.5 ng/mL (0.0-3.6) Creatine Kinase MB Relative Index 0.5 % (0-4) Troponin I Quantitative < 0.017 ng/mL (0.000-0.055) Total Protein 7.7 g/dL (6.4-8.2) Albumin 3.5 g/dL (3.4-5.0) Albumin/Globulin Ratio 0.8 (1.0-1.7) L Urine Collection Type Unknown Urine Color Yellow Urine Clarity Cloudy Urine pH 7.5 Urine Specific [place] 1.020 Urine Protein Negative mg/dL (NEG-TRACE) Urine Glucose (UA) Negative mg/dL (NEG) Urine Ketones (Stick) Negative mg/dL (NEG) Urine Blood Moderate (NEG) Urine Nitrite Negative (NEG) Urine Bilirubin Negative (NEG) Urine Urobilinogen Dipstick 1.0 mg/dL (0.2 mg/dL) Urine Leukocyte Esterase Negative (NEG) Urine RBC 11-20 /HPF (0-2) Urine WBC 0 /HPF (0-4) Urine Squamous Epithelial Cells Few /LPF Urine Amorphous Sediment Present /HPF Urine Bacteria 0 /HPF (0-FEW) Urine Mucus Slight /LPF Laboratory Tests 02/24/19 17:30 Laboratory Tests 02/24/19 18:45 (DEJON BAUER APRN) EKG EKG 1729- SR with non-specific changes, NO STEMI read by Dr. Roth.[] (DEJON BAUER APRN) Radiology/Procedures Radiology/Procedures PROCEDURE: CHEST PA & LATERAL Study: CHEST PA LATERAL Indication: Right-sided chest pain with inspiration. Comparison: 03/12/2017 Findings: Unchanged prominence of the cardiomediastinal silhouette. Similar configuration of the central vascular structures. No lobar consolidation, pleural effusion or pneumothorax. Impression: Similar prominence of the cardiomediastinal silhouette without radiographic manifestations of overt failure. No pneumothorax or lobar infiltrate. Electronically signed by: CHRISTINA BRUMFIELD MD (02/24/2019 6:38 PM) [] (DEJON BAUER APRN) Course & Med Decision Making Course & Med Decision Making Pertinent Labs and Imaging studies reviewed. (See chart for details) dx: pleurisy EKG no acute changes WBC 15.6 ; PT/INR WNL, CMP: alk phos 137 otherwise wnl, troponin < 0.017; UA RBCs 11-20 otherwise unremarkable CXR no acute findings. PT is PERC negative. Low suspicion for ACS. VSS. Pt was given 125 mg of solumedrol IV, 1L NS, 4 mg morphine, and 50 mcg of fentanyl in the ER. She reported feeling better after these medications. Prescriptions written for prednisone 50 mg PO daily x5 days and hydrocodone 5/325 mg prn pain #6 Follow up with PCP tomorrow as planned. Avoid airway irritants, increase clear fluids. Recommend use of cool mist humidifier Patient verbalized an understanding of home care, medications, follow-up, and return to ED instructions and was in agreement with the plan of care. [] (DEJON BAUER APRN) Course & Med Decision Making Staff Physician Addendum: I was working in the ER during the course of this patient's visit. I was available for consultation as needed, but I was not directly involved in the care of this patient. (LEONIDES LITTLE MD) Dragon Disclaimer Dragon Disclaimer This electronic medical record was generated, in whole or in part, using a voice recognition dictation system. (DEJON BAUER APRN) Departure Departure Impression: Primary Impression: Pleurisy without effusion Disposition: 01 HOME, SELF-CARE Condition: STABLE Referrals: EULOGIO WOODS MD (PCP) Patient Instructions: Pleurisy, [id number] Additional Instructions: Fill prescription(s) and use as directed. Recommend use of a Cool mist humidifier in room at bedtime. Alternate Tylenol or ibuprofen as needed for pa in/fever. Increase clear fluids. Avoid airway triggers such as smoke, fragrance, dust, and pollen. Follow-up with your primary care doctor in 1-2 days, return to the ER if symptoms worsen. Scripts Prednisone (PREDNISONE) 50 Mg Tablet 1 TAB PO DAILY for 5 Days, #5 TAB 0 Refills start taking on 02/25/19 Prov: DEJON BAUER APRN 02/24/19 Hydrocodone Bit/Acetaminophen (HYDROCODONE-APAP 5-325 ) 1 Tab Tablet 1 TAB PO PRN Q6HRS PRN for PAIN for 3 Days, #6 TAB 0 Refills Prov: DEJON BAUER APRN 02/24/19 DEJON BAUER APRN Feb 24, 2019 18:17 LEONIDES LITTLE MD Feb 25, 2019 04:41
[2019-02-24 18:22] LABS: BASO # 0.1 x10^3/uL (0.0-0.2); BASO % 1 % (0-3); EOS # 0.2 x10^3/uL (0.0-0.7); EOS % 1 % (0-3); HEMATOCRIT 46.2 % (36.0-47.0); HEMOGLOBIN 15.5 g/dL (12.0-15.5); LYMPH # 5.5 x10^3/uL (1.0-4.8); LYMPH % 35 % (24-48); MEAN CORPUSCULAR HEMOGLOBIN 32 pg (25-35); MEAN CORPUSCULAR HGB CONC 34 g/dL (31-37); MEAN CORPUSCULAR VOLUME 95 fL (79-100); MONO # 0.8 x10^3/uL (0.0-1.1); MONO % 5 % (0-9); NEUT # 9.1 x10^3/uL (1.8-7.7); NEUT % 58 % (31-73); PLATELET COUNT 358 x10^3/uL (140-400); RED BLOOD COUNT 4.84 x10^6/uL (3.50-5.40); RED CELL DISTRIBUTION WIDTH 13.5 % (11.5-14.5); WHITE BLOOD COUNT 15.6 x10^3/uL (4.0-11.0)
[2019-02-24 18:30] LABS: PROTHROMBIN TIME PATIENT 12.1 SEC (11.7-14.0)
--- NOTE | 2019-02-24 18:41 | RAD ---
Study: CHEST PA LATERAL Indication: Right-sided chest pain with inspiration. Comparison: 03/12/2017 Findings: Unchanged prominence of the cardiomediastinal silhouette. Similar configuration of the central vascular structures. No lobar consolidation, pleural effusion or pneumothorax. Impression: Similar prominence of the cardiomediastinal silhouette without radiographic manifestations of overt failure. No pneumothorax or lobar infiltrate. Electronically signed by: CHRISTINA BRUMFIELD MD (02/24/2019 6:38 PM) [facility]
[2019-02-24] MEDS ORDERED: MORPHINE SULFATE 10 MG/ML VIAL. IV ONE (19:00)
[2019-02-24] MEDS ORDERED: ONDANSETRON PF 4 MG/2 ML VIAL. IM ONE (19:00)
[2019-02-24 19:06] LABS: CALCIUM 8.9 mg/dL (8.5-10.1); CREATININE 0.8 mg/dL (0.6-1.0); POTASSIUM 3.5 mmol/L (3.5-5.1)
[2019-02-24 19:11] LABS: ALBUMIN 3.5 g/dL (3.4-5.0); ALBUMIN/GLOBULIN RATIO 0.8 (1.0-1.7); TOTAL BILIRUBIN 0.4 mg/dL (0.2-1.0); TOTAL PROTEIN 7.7 g/dL (6.4-8.2)
[2019-02-24 19:24] LABS: BILIRUBIN,URINE NEGATIVE (NEG); CLARITY,URINE CLOUDY; COLOR,URINE YELLOW; NITRITE,URINE NEGATIVE (NEG); PH,URINE 7.5; PROTEIN,URINE NEGATIVE (NEG-TRACE)
[2019-02-24 19:46] LABS: AMORPHOUS SEDIMENT,UR PRESENT /HPF; BACTERIA,URINE 0 /HPF (0-FEW); SQUAMOUS EPITHELIAL CELL,UR FEW /LPF; WBC,URINE 0 /HPF (0-4)
[2019-02-24] MEDS ORDERED: fentaNYL PF VIAL 100 MCG/2 ML VIAL IV ONE ×2 (20:00)
[2019-02-24 20:42] VITALS: BP 131/76
[2019-02-24] MEDS ORDERED: HYDR-2761 PO (20:44)
[2019-02-24] MEDS ORDERED: PRED50TA PO (20:44)
--- NOTE | 2019-02-25 03:57 | EKG ---
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
== END 2019-02-24 21:02 | disposition home or self-care (01) ==
LOC: ER 17:16
DX: R09.1 Pleurisy (principal); R07.89 Other chest pain; R00.2 Palpitations; I10 Essential (primary) hypertension; G62.9 Polyneuropathy, unspecified; Z90.49 Acquired absence of other specified parts of digestive tract; Z90.710 Acquired absence of both cervix and uterus
CPT/HCPCS: 36415; 71046; 80053; 81001; 82553; 83690; 84484; 85025; 85610; 85730; 93005; 94640; 96372; 96374; 96375; 99285; J2270; J2405; J2930; J3010; J7030; J7613

== ENCOUNTER → 2020-01-01 | Outpatient (CLI) | payer BC ==
[~2020-01-01] MED LIST changes: +HYDR-2761 PO; +MAGN296S68 PO; -MAGN296S9 PO
--- NOTE | 2020-01-01 16:28 | RAD ---
EXAM: Renal sonogram. HISTORY: Hematuria. TECHNIQUE: Sonographic imaging the kidneys and bladder was performed. COMPARISON: 11/23/2017. FINDINGS: The kidneys are normal in size. No solid or cystic renal lesion is seen. There is no hydronephrosis. The bladder is nearly empty. This limits evaluation for the ureteral jets. The inferior vena cava and aorta are not assessed. IMPRESSION: Sonographically unremarkable kidneys. Electronically signed by: So Mackey MD (01/01/2020 4:25 PM) [id number]
== END | disposition home or self-care (01) ==
LOC: US 14:14
PROVIDERS: ATTEND Family Medicine
DX: R31.9 Hematuria, unspecified (principal)
CPT/HCPCS: 76770

== ENCOUNTER 2020-01-12 18:20 | Emergency (ER) | payer BC ==
[~2020-01-12] VITALS: Ht 170.2 cm; Wt 84.0 kg
[2020-01-12] MEDS ORDERED: ASPIRIN 325 MG TABLET PO ONE (19:45)
[2020-01-12] MEDS ORDERED: fentaNYL PF VIAL 100 MCG/2 ML VIAL IV PRN (19:45)
--- NOTE | 2020-01-12 19:57 | EKG ---
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
[2020-01-12 20:02] LABS: BASO # 0.2 x10^3/uL (0.0-0.2); BASO % 1 % (0-3); EOS # 0.2 x10^3/uL (0.0-0.7); EOS % 1 % (0-3); HEMATOCRIT 42.3 % (36.0-47.0); HEMOGLOBIN 14.9 g/dL (12.0-15.5); LYMPH # 4.4 x10^3/uL (1.0-4.8); LYMPH % 32 % (24-48); MEAN CORPUSCULAR HEMOGLOBIN 33 pg (25-35); MEAN CORPUSCULAR HGB CONC 35 g/dL (31-37); MEAN CORPUSCULAR VOLUME 93 fL (79-100); MONO # 0.7 x10^3/uL (0.0-1.1); MONO % 5 % (0-9); NEUT # 8.3 x10^3/uL (1.8-7.7); NEUT % 60 % (31-73); PLATELET COUNT 355 x10^3/uL (140-400); RED BLOOD COUNT 4.54 x10^6/uL (3.50-5.40); RED CELL DISTRIBUTION WIDTH 13.1 % (11.5-14.5); WHITE BLOOD COUNT 13.8 x10^3/uL (4.0-11.0)
[2020-01-12 20:12] LABS: PROTHROMBIN TIME PATIENT 12.8 SEC (11.7-14.0)
--- NOTE | 2020-01-12 20:12 | RAD ---
Exam: CT head INDICATION: Arm pain TECHNIQUE: Sequential axial images through the head were obtained without the administration of IV contrast. Comparisons: None FINDINGS: No focal parenchymal lesion or hemorrhage is identified. There is no midline shift or sulcal effacement. No acute vascular territory infarction is identified. Lopez-white distinction is preserved. The ventricular system is within normal limits without compression hydrocephalus. The basal cisterns are well maintained. The visualized portions of the paranasal sinuses and mastoid air cells are well-pneumatized. No acute fractures. IMPRESSION: No acute intracranial abnormality. Exposure: One or more of the following in the visualized dose reduction techniques were utilized for this examination: 1. Automated exposure control 2. Adjustment of the MA and/or KV according to patient size Use of iterative of reconstructive technique Electronically signed by: Yahaira Ruelas MD (01/12/2020 8:09 PM) [id number]
[2020-01-12 20:13] LABS: CALCIUM 8.8 mg/dL (8.5-10.1); CREATININE 0.7 mg/dL (0.6-1.0); GFR 108.1; POTASSIUM 3.7 mmol/L (3.5-5.1)
[2020-01-12 20:18] LABS: ALBUMIN 3.5 g/dL (3.4-5.0); ALBUMIN/GLOBULIN RATIO 0.9 (1.0-1.7); MAGNESIUM 2.2 mg/dL (1.8-2.4); TOTAL BILIRUBIN 0.3 mg/dL (0.2-1.0); TOTAL PROTEIN 7.3 g/dL (6.4-8.2)
--- NOTE | 2020-01-12 20:33 | PHYS DOC ---
Past Medical History Past Medical History: Hypertension, Other Additional Past Medical Histor: NEUROPATHY Past Surgical History: Cholecystectomy, Hysterectomy, Other Additional Past Surgical Histo: L BREAST BX Smoking Status: Current Every Day Smoker Alcohol Use: None Drug Use: None General Adult EDM: Chief Complaint: NECK PAIN HPI: HPI: Patient is a 49 year old female with history of hypertension who presents to the ED today complaining of moderate left shoulder pain that has been going on for 8 days. 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 Denies any numbness or tingling to bilateral upper extremities. She states the pain is worse when at work. Denies anything specifically relieving the pain. She states she was seen by the nurse at work and was told to come to the ED to be worked up for stroke. Denies any chest pain or shortness of breath. Review of Systems: Review of Systems: Constitutional: Denies fever or chills. [] Eyes: Denies change in visual acuity. [] HENT: Denies nasal congestion or sore throat. [] Respiratory: Denies cough or shortness of breath. [] Cardiovascular: Denies chest pain or edema. [] GI: Denies abdominal pain, nausea, vomiting, bloody stools or diarrhea. [] : Denies dysuria. [] Musculoskeletal: Reports left shoulder pain Integument: Denies rash. [] Neurologic: Denies headache, focal weakness or sensory changes. [] Psychiatric: Denies depression or anxiety. [] Heart Score: Risk Factors: Risk Factors: DM, Current or recent (<one month) smoker, HTN, HLP, family history of CAD, obesity. Risk Scores: Score 0 - 3: 2.5% MACE over next 6 weeks - Discharge Home Score 4 - 6: 20.3% MACE over next 6 weeks - Admit for Clinical Observation Score 7 - 10: 72.7% MACE over next 6 weeks - Early Invasive Strategies Current Medications: Current Medications Medications (Trade) Dose Ordered Sig/Letty Start Time Stop Time Status Last Admin Dose Admin Aspirin (Jung Aspirin) 325 mg 1X ONCE 01/12/20 19:45 01/12/20 19:46 DC Fentanyl Citrate (Fentanyl 2ml Vial) 50 mcg PRN Q15MIN PRN 01/12/20 19:45 01/13/20 19:44 Allergies: Allergies: Allergies Coded Allergies Type Severity Reaction Last Updated Verified codeine Allergy Severe Anaphylaxis 01/03/18 Yes Physical Exam: PE: Constitutional: Well developed, well nourished, no acute distress, non-toxic appearance. [] HENT: Normocephalic, atraumatic, bilateral external ears normal, oropharynx moist, no oral exudates, nose normal. [] Eyes: PERRLA, EOMI, conjunctiva normal, no discharge. [] Neck: Normal range of motion, no tenderness, supple, no stridor. [] Cardiovascular:Heart rate regular rhythm, no murmur [] Lungs & Thorax: Bilateral breath sounds clear to auscultation [] Abdomen: Bowel sounds normal, soft, no tenderness, no masses, no pulsatile masses. [] Skin: Warm, dry, no erythema, no rash. [] Back: No tenderness, no CVA tenderness. [] Extremities: No tenderness, no cyanosis, no clubbing, ROM intact, no edema. [] Neurologic: Alert and oriented X 3, normal motor function, normal sensory function, no focal deficits noted. [] Psychologic: Affect normal, judgement normal, mood normal. [] Current Patient Data: Labs: Laboratory Tests Test 01/12/20 19:52 White Blood Count 13.8 x10^3/uL (4.0-11.0) H Red Blood Count 4.54 x10^6/uL (3.50-5.40) Hemoglobin 14.9 g/dL (12.0-15.5) Hematocrit 42.3 % (36.0-47.0) Mean Corpuscular Volume 93 fL (79-100) Mean Corpuscular Hemoglobin 33 pg (25-35) Mean Corpuscular Hemoglobin Concent 35 g/dL (31-37) Red Cell Distribution Width 13.1 % (11.5-14.5) Platelet Count 355 x10^3/uL (140-400) Neutrophils (%) (Auto) 60 % (31-73) Lymphocytes (%) (Auto) 32 % (24-48) Monocytes (%) (Auto) 5 % (0-9) Eosinophils (%) (Auto) 1 % (0-3) Basophils (%) (Auto) 1 % (0-3) Neutrophils # (Auto) 8.3 x10^3/uL (1.8-7.7) H Lymphocytes # (Auto) 4.4 x10^3/uL (1.0-4.8) Monocytes # (Auto) 0.7 x10^3/uL (0.0-1.1) Eosinophils # (Auto) 0.2 x10^3/uL (0.0-0.7) Basophils # (Auto) 0.2 x10^3/uL (0.0-0.2) Prothrombin Time 12.8 SEC (11.7-14.0) Prothrombin Time INR 1.0 (0.8-1.1) Sodium Level 140 mmol/L (136-145) Potassium Level 3.7 mmol/L (3.5-5.1) Chloride Level 106 mmol/L (98-107) Carbon Dioxide Level 26 mmol/L (21-32) Anion Gap 8 (6-14) Blood Urea Nitrogen 12 mg/dL (7-20) Creatinine 0.7 mg/dL (0.6-1.0) Estimated GFR (Cockcroft-Gault) 108.1 BUN/Creatinine Ratio 17 (6-20) Glucose Level 93 mg/dL (70-99) Calcium Level 8.8 mg/dL (8.5-10.1) Magnesium Level 2.2 mg/dL (1.8-2.4) Total Bilirubin 0.3 mg/dL (0.2-1.0) Aspartate Amino Transferase (AST) 19 U/L (15-37) Alanine Aminotransferase (ALT) 16 U/L (14-59) Alkaline Phosphatase 131 U/L (46-116) H Troponin I Quantitative < 0.017 ng/mL (0.000-0.055) XA-Uoa-B-Type Natriuretic Peptide 30 pg/mL (0-124) Total Protein 7.3 g/dL (6.4-8.2) Albumin 3.5 g/dL (3.4-5.0) Albumin/Globulin Ratio 0.9 (1.0-1.7) L Thyroid Stimulating Hormone (TSH) 1.308 uIU/mL (0.358-3.74) Laboratory Tests 01/12/20 19:52 Laboratory Tests 01/12/20 19:52 Vital Signs: Vital Signs Date Time Temp Pulse Resp B/P (MAP) Pulse Ox O2 Delivery O2 Flow Rate FiO2 01/12/20 18:50 98.4 71 20 194/101 (132) 98 Room Air 98.4 EKG: EK interpreted by Dr. Bonilla sinus rhythm heart rate 59 no STEMI [] Radiology/Procedures: Radiology/Procedures: []PROCEDURE: CERVICAL SPINE 2-3V EXAM: CERVICAL SPINE 2-3V 01/12/2020 7:38 PM CLINICAL INDICATION:Neck pain, shoulder pain and numbness COMPARISON:None TECHNIQUE:3 views of the cervical spine FINDINGS:The cervical spine is viewed through C7-T1. There is no acute fracture or listhesis. Mild reversal of lordosis. There is minimal disc space narrowing throughout the cervical spine with tiny osteophytes at C3-C4, C4-C5, C5-C6. Facet joints are normal. The dens is intact and symmetric the ring of C1. Incidental ossification of the nuchal ligament noted. Prevertebral soft tissues normal. IMPRESSION:No acute osseous abnormality. Minimal degenerative disc disease of the cervical spine. Electronically signed by: Eugenie Carrillo MD (01/12/2020 8:34 PM) [id number] DICTATED and SIGNED BY: EUGENIE CARRILLO MD DATE: 01/12/202033 PROCEDURE: PORTABLE CHEST 1V EXAM: PORTABLE CHEST 1V 01/12/2020 7:38 PM CLINICAL INDICATION: Chest pain COMPARISON: Chest radiograph 02/24/2019 TECHNIQUE: PA view of the chest FINDINGS: The heart and mediastinum are normal. Lungs are well-expanded and clear. No consolidation, pleural effusion, or pneumothorax. Pulmonary vascularity is normal. The thoracic skeleton is intact. IMPRESSION: Normal chest radiograph. Electronically signed by: Eugenie Carrillo MD (01/12/2020 8:31 PM) [id number] DICTATED and SIGNED BY: EUGENIE CARRILLO MD DATE: 01/12/202030 PROCEDURE: CT HEAD WO CONTRAST Exam: CT head INDICATION: Arm pain TECHNIQUE: Sequential axial images through the head were obtained without the administration of IV contrast. Comparisons: None FINDINGS: No focal parenchymal lesion or hemorrhage is identified. There is no midline shift or sulcal effacement. No acute vascular territory infarction is identified. Lopez-white distinction is preserved. The ventricular system is within normal limits without compression hydrocephalus. The basal cisterns are well maintained. The visualized portions of the paranasal sinuses and mastoid air cells are well-pneumatized. No acute fractures. IMPRESSION: No acute intracranial abnormality. Exposure: One or more of the following in the visualized dose reduction techniques were utilized for this examination: 1. Automated exposure control 2. Adjustment of the MA and/or KV according to patient size Use of iterative of reconstructive technique Electronically signed by: Yahaira Nowak MD (01/12/2020 8:09 PM) [id number] DICTATED and SIGNED BY: YAHAIRA NOWAK MD DATE: 01/12/202008 PROCEDURE: SHOULDER 2+V LEFT Exam: Left shoulder 3 views INDICATION: Left shoulder pain TECHNIQUE: Frontal view of the left shoulder with internal and external rotation and transscapular Y views. Comparisons: None FINDINGS: Bone mineralization is normal. No acute or healed fractures. Soft tissues are unremarkable. Joint spaces are well-maintained. IMPRESSION: No acute osseous abnormality. Electronically signed by: Yahaira Nowak MD (01/12/2020 8:31 PM) [id number] DICTATED and SIGNED BY: YAHAIRA NOWAK MD DATE: 01/12/202030 Course & Med Decision Making: Course & Med Decision Making Pertinent Labs and Imaging studies reviewed. (See chart for details) This is a 49-year-old female patient presenting to the ED today complaining of left shoulder pain that has been going on for 8 days. 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 She is concerned about stroke. CT of the head is negative. Cardiac work-up is negative. Her blood pressure was running high in the 140s over 70s. She has history of hypertension. Encouraged her to follow- up with the PCP and see if they need to put her on medicines. Discharge to home. Provided return precautions. Dragon Disclaimer: Ara Disclaimer: This electronic medical record was generated, in whole or in part, using a voice recognition dictation system. Departure Departure Impression: Primary Impression: Left shoulder strain Qualified Codes: S46.912A - Strain of unspecified muscle, fascia and tendon at shoulder and upper arm level, left arm, initial encounter Additional Impression: High blood pressure Qualified Codes: I10 - Essential (primary) hypertension Disposition: HOME, SELF-CARE Condition: STABLE Referrals: EULOGIO WOODS MD (PCP) Follow-up next week Patient Instructions: Hypertension, Shoulder Sprain Additional Instructions: You were evaluated in the emergency room for shoulder pain, we did a CAT scan of your head which is negative for any acute findings, x-ray of your neck, left shoulder, chest are negative. EKG is negative, lab work is negative for any acute findings. We highly suspect you have strained your left shoulder. Try to ice and elevate the extremity. Your blood pressure was elevated in the emergency room. Follow-up with your own primary care doctor in the course of this week or next week. Scripts Diclofenac Sodium (DICLOFENAC SODIUM) 50 Mg Tablet.dr 1 TAB PO BID, #20 TAB Prov: ALISTAIR ZAVALA APRN 01/12/20 Methylprednisolone (MEDROL) 4 Mg Tab.ds.pk 1 PKG PO UD, #1 PKG Prov: ALISTAIR ZAVALA APRN 01/12/20 Cyclobenzaprine Hcl (CYCLOBENZAPRINE HCL) 10 Mg Tablet 1 TAB PO TID, #30 TAB Prov: ALISTAIR ZAVALA APRN 01/12/20 Justicifation of Admission Dx: Justifications for Admission: Justification of Admission Dx: N/A ALISTAIR ZAVALA APRN Jan 12, 2020 20:33
--- NOTE | 2020-01-12 20:36 | RAD ---
EXAM: CERVICAL SPINE 2-3V 01/12/2020 7:38 PM CLINICAL INDICATION:Neck pain, shoulder pain and numbness COMPARISON:None TECHNIQUE:3 views of the cervical spine FINDINGS:The cervical spine is viewed through C7-T1. There is no acute fracture or listhesis. Mild reversal of lordosis. There is minimal disc space narrowing throughout the cervical spine with tiny osteophytes at C3-C4, C4-C5, C5-C6. Facet joints are normal. The dens is intact and symmetric the ring of C1. Incidental ossification of the nuchal ligament noted. Prevertebral soft tissues normal. IMPRESSION:No acute osseous abnormality. Minimal degenerative disc disease of the cervical spine. Electronically signed by: Eugenie Carrillo MD (01/12/2020 8:34 PM) [id number]
[2020-01-12] MEDS ORDERED: METH4TAB2 PO (21:23)
[2020-01-12] MEDS ORDERED: CYCL10TA2 PO (21:23)
[2020-01-12] MEDS ORDERED: DICL50TA4 PO (21:23)
[2020-01-12 21:40] VITALS: BP 145/72
== END 2020-01-12 21:34 | disposition home or self-care (01) ==
LOC: ER 18:20
DX: S46.812A Strain of other muscles, fascia and tendons at shoulder and upper arm level, left arm, initial encounter (principal); I10 Essential (primary) hypertension; M54.2 Cervicalgia; F17.200 Nicotine dependence, unspecified, uncomplicated; Z90.710 Acquired absence of both cervix and uterus; Z90.49 Acquired absence of other specified parts of digestive tract; Z98.890 Other specified postprocedural states; Z88.5 Allergy status to narcotic agent; X58.XXXA Exposure to other specified factors, initial encounter; Y93.89 Activity, other specified; Y92.89 Other specified places as the place of occurrence of the external cause; Y99.0 Civilian activity done for income or pay
CPT/HCPCS: 36415; 70450; 71045; 72040; 73030; 80053; 83735; 83880; 84443; 84484; 85025; 85610; 93005; 99285

== ENCOUNTER 2020-05-25 11:36 | Emergency (ER) | payer BC, OTHER ==
[~2020-05-25] VITALS: Ht 170.2 cm; Wt 86.3 kg
[~2020-05-25 11:36] MED LIST changes: +DICL50TA4 PO; +METH4TAB2 PO
[2020-05-25 12:59] LABS: BILIRUBIN,URINE NEGATIVE (NEG); CLARITY,URINE CLEAR; COLOR,URINE AMBER; NITRITE,URINE NEGATIVE (NEG); PROTEIN,URINE 30 mg/dL (NEG-TRACE)
[2020-05-25 13:26] LABS: BACTERIA,URINE 0 /HPF (0-FEW); WBC,URINE OCC /HPF (0-4)
[2020-05-25] MEDS ORDERED: CEPH750C9 PO (15:03)
--- NOTE | 2020-05-25 15:03 | ED.ADGEN ---
Past Medical History Past Medical History: Hypertension, UTI, Other Additional Past Medical Histor: NEUROPATHY Past Surgical History: Cholecystectomy, Hysterectomy, Other Additional Past Surgical Histo: L BREAST BX, dental extractions Smoking Status: Current Every Day Smoker Additional Information: 04/17 ppd Alcohol Use: None Drug Use: None General Adult EDM: Chief Complaint: PAIN ON URINATION HPI: HPI: Patient is a 49 year old AA female who presents emergency department with complaints of lower left back pain, increased urinary frequency, urinary urgency, and blood in her urine since yesterday. Patient reports that the back pain increases with urination. She reports that she has been evaluated by her PCP Dr. Garza who usually calls in a prescription for Keflex for her but was unable to call in for her today. Patient reports that she just changed medical insurances and she is waiting to see a urologist. Patient denies any fever, body aches, fatigue, nausea, vomiting, or diarrhea. She currently rates her pain 8 out of 10 on the pain scale, she denies any radiation of the pain. She reports at times the pain is worse with movement. Review of Systems: Review of Systems: Complete ROS is negative unless otherwise noted in HPI. Allergies: Allergies: Allergies Coded Allergies Type Severity Reaction Last Updated Verified codeine Adverse Reaction Severe seizures 05/25/20 Yes Physical Exam: PE: See Above Constitutional: Well developed, well nourished, no acute distress, non-toxic appearance. [] HENT: Normocephalic, atraumatic, bilateral external ears normal, nose normal. [] Eyes: PERRLA, EOMI, conjunctiva normal, no discharge. [] Neck: Normal range of motion, no stridor. [] Cardiovascular:Heart rate regular rhythm Lungs & Thorax: Respirations even and unlabored, no retractions, no respiratory distress Abdomen: soft, no tenderness back: No CVA tenderness, no increased pain with straight leg lift on the left, no bony tenderness, no paraspinal tenderness to palpation Skin: Warm, dry, no erythema, no rash. [] Extremities: No cyanosis, ROM intact, no edema. [] Neurologic: Alert and oriented X 3, no focal deficits noted. [] Psychologic: Affect normal, judgement normal, mood normal. [] Current Patient Data: Labs: Laboratory Tests Test 05/25/20 12:45 Urine Collection Type Unknown Urine Color [place] Urine Clarity Clear Urine pH 7.0 (<5.0-8.0) Urine Specific [place] 1.025 (1.000-1.030) Urine Protein 30 mg/dL (NEG-TRACE) Urine Glucose (UA) Negative mg/dL (NEG) Urine Ketones (Stick) Negative mg/dL (NEG) Urine Blood Large (NEG) Urine Nitrite Negative (NEG) Urine Bilirubin Negative (NEG) Urine Urobilinogen Dipstick 1.0 mg/dL (0.2 mg/dL) Urine Leukocyte Esterase Negative (NEG) Urine RBC 11-20 /HPF (0-2) Urine WBC Occ /HPF (0-4) Urine Squamous Epithelial Cells Few /LPF Urine Bacteria 0 /HPF (0-FEW) Urine Mucus Mod /LPF Vital Signs: Vital Signs Date Time Temp Pulse Resp B/P (MAP) Pulse Ox O2 Delivery O2 Flow Rate FiO2 05/25/20 14:30 98.2 70 18 170/87 (114) 99 Room Air 98.2 EKG: EKG: [] Heart Score: Risk Factors: Risk Factors: DM, Current or recent (<one month) smoker, HTN, HLP, family history of CAD, obesity. Risk Scores: Score 0 - 3: 2.5% MACE over next 6 weeks - Discharge Home Score 4 - 6: 20.3% MACE over next 6 weeks - Admit for Clinical Observation Score 7 - 10: 72.7% MACE over next 6 weeks - Early Invasive Strategies Radiology/Procedures: Radiology/Procedures: [] Course & Med Decision Making: Course & Med Decision Making Pertinent Labs and Imaging studies reviewed. (See chart for details) 41-year-old female presents emergency department with complaints of left low back pain and urinary symptoms. I discussed the results of her urinalysis with her, the patient states that this is what her urinary tract infections always show. She declines any labs, or imaging. She states she needs to be evaluated by urologist and simply requests a prescription for Keflex. Patient denies any irregular vaginal discharge or concerns of gonorrhea or chlamydia. I advised her that I will test her urine for gonorrhea and chlamydia as they can cause problems with urination as well, patient is agreeable to this. Prescription was written for Keflex. Patient was instructed to increase clear fluids and avoid bladder irritants, follow-up with her primary care doctor and urologist for further evaluation and treatment, return to ER if her symptoms worsen. Patient verbalized an understanding of home care, medications, follow-up, and return to ED instructions and was in agreement with the plan of care. [] Ara Disclaimer: Ara Disclaimer: This electronic medical record was generated, in whole or in part, using a voice recognition dictation system. Departure Departure Impression: Primary Impression: Hematuria Additional Impression: Dysuria Disposition: 01 DC HOME SELF CARE/HOMELESS Condition: STABLE Referrals: EULOGIO GARZA MD (PCP) Patient Instructions: Hematuria, Adult Additional Instructions: Fill prescription(s) and use as directed. Avoid bladder irritants such as caffeine, carbonation, and spicy foods. Increase clear fluids. Follow up with your primary care doctor in 1 to 2 days, return to the ER if symptoms worsen. Scripts Cephalexin (KEFLEX) 750 Mg Capsule 1 CAP PO BID for 7 Days, #14 CAP 0 Refills Prov: DEJON BAUER APRN 05/25/20 Problem Qualifiers Primary Impression: Hematuria Hematuria type: unspecified type Qualified Codes: R31.9 - Hematuria, unspecified DEJON BAUER [employer] KNITTER May 25, 2020 15:03
[2020-05-25 15:12] VITALS: BP 162/81
== END 2020-05-25 15:27 | disposition home or self-care (01) ==
LOC: ER 11:36
DX: R31.9 Hematuria, unspecified (principal); R30.0 Dysuria; M54.5 Low back pain; I10 Essential (primary) hypertension; F17.200 Nicotine dependence, unspecified, uncomplicated; Z90.49 Acquired absence of other specified parts of digestive tract; Z90.710 Acquired absence of both cervix and uterus; Z98.890 Other specified postprocedural states; Z88.5 Allergy status to narcotic agent
CPT/HCPCS: 81001; 87491; 87591; 99283

== ENCOUNTER 2020-09-25 06:10 | Emergency (ER) | payer OTHER ==
[~2020-09-25] VITALS: Ht 170.2 cm; Wt 81.8 kg
[~2020-09-25 06:10] MED LIST changes: +CEPH750C9 PO
[2020-09-25 07:06] LABS: BILIRUBIN,URINE NEGATIVE (NEG); CLARITY,URINE CLEAR; COLOR,URINE YELLOW; NITRITE,URINE NEGATIVE (NEG); PROTEIN,URINE NEGATIVE (NEG-TRACE)
[2020-09-25 07:24] LABS: BACTERIA,URINE 0 /HPF (0-FEW)
[2020-09-25] MEDS ORDERED: CEPH500T PO (07:49)
--- NOTE | 2020-09-25 07:49 | ED.ADGEN ---
Past Medical History Past Medical History: GERD, Hypertension, UTI, Other Additional Past Medical Histor: NEUROPATHY Past Surgical History: Cholecystectomy, Hysterectomy, Other Additional Past Surgical Histo: L BREAST BX, dental extractions Smoking Status: Current Every Day Smoker Alcohol Use: None Drug Use: None General Adult EDM: Chief Complaint: PAIN ON URINATION HPI: HPI: Patient is a 50-year-old female who presents to the emergency room complaining of left flank achiness, dysuria, cloudy urine. She has been having blood in her urine for the last 6 months and this has been unchanged. She has an appointment with the urologist on . She states this feels exactly what she feels like when she is starting to get a UTI. She denies any nausea, vomiting, fatigue, chills, sweats, fever, chest pain, diarrhea, constipation. Review of Systems: Review of Systems: Complete ROS is negative unless otherwise documented in HPI Allergies: Allergies: Allergies Coded Allergies Type Severity Reaction Last Updated Verified codeine Adverse Reaction Severe seizures 05/25/20 Yes Physical Exam: PE: General: Awake, alert, NAD. Well Nourished, well hydrated. Cooperative HEENT: Atraumatic, EOMI, PERRL, airway patent, moist oral mucosa Neck: Supple, trachea midline Respiratory: CTA bilaterally, normal effort, no wheezing/crackles CV: RRR, no murmur, cap refill <2 GI: Soft, nondistended, nontender, no masses MSK: No obvious deformities Skin: Warm, dry, intact Neuro: A&O x3, speech NL, sensory and motor grossly intact, no focal deficits Psych: Normal affect, normal mood, not suicidal or homicidal Current Patient Data: Labs: Laboratory Tests Test 09/25/20 06:18 09/25/20 06:22 Urine Collection Type Void Urine Color Yellow Urine Clarity Clear Urine pH 8.0 (<5.0-8.0) Urine Specific [place] 1.015 (1.000-1.030) Urine Protein Negative mg/dL (NEG-TRACE) Urine Glucose (UA) Negative mg/dL (NEG) Urine Ketones (Stick) Negative mg/dL (NEG) Urine Blood Moderate (NEG) Urine Nitrite Negative (NEG) Urine Bilirubin Negative (NEG) Urine Urobilinogen Dipstick 1.0 mg/dL (0.2 mg/dL) Urine Leukocyte Esterase Negative (NEG) Urine RBC 11-20 /HPF (0-2) Urine WBC 1-4 /HPF (0-4) Urine Squamous Epithelial Cells Mod /LPF Urine Bacteria 0 /HPF (0-FEW) Urine Mucus Mod /LPF POC Urine HCG, Qualitative Hcg negative (Negative) Vital Signs: Vital Signs Date Time Temp Pulse Resp B/P (MAP) Pulse Ox O2 Delivery O2 Flow Rate FiO2 09/25/20 06:26 97.6 80 20 130/75 (93) 95 Room Air 97.6 EKG: EKG: [] Heart Score: C/O Chest Pain: N/A Risk Factors: Risk Factors: DM, Current or recent (<one month) smoker, HTN, HLP, family history of CAD, obesity. Risk Scores: Score 0 - 3: 2.5% MACE over next 6 weeks - Discharge Home Score 4 - 6: 20.3% MACE over next 6 weeks - Admit for Clinical Observation Score 7 - 10: 72.7% MACE over next 6 weeks - Early Invasive Strategies Radiology/Procedures: Radiology/Procedures: [] Course & Med Decision Making: Course & Med Decision Making Pertinent Labs and Imaging studies reviewed. (See chart for details) Patient is a 50-year-old female presents to the emergency room with UTI sympto ms. Patient has a history of blood in her urine and is seeing a urologist for this. She states this has been unchanged for the last 6 months. She states this feels very similar to a UTI. UA does show some white blood cells. We will place her on Keflex. She has a follow-up appointment with urology later this week. Patient's test results and vitals while in the ED were fully reviewed and discussed with the patient. Patient is stable and at this time does not need admission to the hospital. We have discussed strict return precautions and the importance of following up with their Primary Care Physician. Patient stated understanding and was given an opportunity to ask any questions. Patient is in agreement with plan. Ara Disclaimer: Ara Disclaimer: This electronic medical record was generated, in whole or in part, using a voice recognition dictation system. Departure Departure Impression: Primary Impression: Hematuria Additional Impression: Dysuria Disposition: HOME / SELF CARE / HOMELESS Condition: STABLE Referrals: EULOGIO WOODS MD (PCP) Patient Instructions: Urinary Tract Infection Scripts Cephalexin (CEPHALEXIN) 500 Mg Tablet 1 TAB PO BID for 7 Days, #14 TAB Prov: YIFAN RITCHIE MD 09/25/20 Problem Qualifiers YIFAN RITCHIE MD Sep 25, 2020 07:49
[2020-09-25 07:58] VITALS: BP 141/82
== END 2020-09-25 08:00 | disposition home or self-care (01) ==
LOC: ER 06:10
DX: R31.9 Hematuria, unspecified (principal); R30.0 Dysuria; R10.9 Unspecified abdominal pain; K21.9 Gastro-esophageal reflux disease without esophagitis; I10 Essential (primary) hypertension; F17.200 Nicotine dependence, unspecified, uncomplicated; Z87.440 Personal history of urinary (tract) infections; Z90.89 Acquired absence of other organs; Z90.710 Acquired absence of both cervix and uterus; Z88.5 Allergy status to narcotic agent
CPT/HCPCS: 81001; 81025; 99283

== ENCOUNTER → 2020-12-13 | Outpatient (CLI) | payer OTHER ==
[~2020-12-13] MED LIST changes: +CEPH500T PO
--- NOTE | 2020-12-13 16:38 | RAD ---
INDICATION: 50 years of age asymptomatic female patient presents for screening mammography. TECHNIQUE: Full field craniocaudal and mediolateral oblique images of both breasts were obtained usi ng digital technique with tomosynthesis and also analyzed with computer-aided detection software. COMPARISON: 11/15/15 BREAST COMPOSITION: Category B: There are scattered fibroglandular densities. FINDINGS: Benign calcifications are present. The parenchymal pattern appears stable. No suspicious masses, microcalcifications or architectural distortion is present to suggest malignanc y in either breast. The visualized axillae are unremarkable. IMPRESSION: No mammographic evidence of malignancy. RECOMMENDATION: Annual screening mammography is recommended, unless clinically indicated sooner based on symptoms or change in physical exam. BIRADS 2: BENIGN This study was interpreted with the benefit of Computerized Aided Detection (CAD). Patient information is entered into the reminder system with a target due date for the next screening mammogram. Mammography is the most sensitive method for finding small breast cancers, but it does not detect the m all and is not a substitute for careful clinical examination. A negative mammogram does not negate a clinically suspicious finding and should not result in delay in biopsying a clinically suspicious a bnormality. "Our facility is accredited by the [employer] Mammography Program." Electronically signed by: Anton Denise MD (12/13/2020 4:36 PM) [id number]
== END ==
LOC: MAMMO 13:16
PROVIDERS: ATTEND Family Medicine
DX: Z12.31 Encounter for screening mammogram for malignant neoplasm of breast (principal)
CPT/HCPCS: 77063; 77067

== ENCOUNTER 2021-08-23 04:25 | Emergency (ER) | payer OTHER ==
[~2021-08-23] VITALS: Ht 170.2 cm; Wt 86.3 kg
[~2021-08-23 04:25] MED LIST changes: +CYCL10TA19 PO; -CYCL10TA2 PO
[2021-08-23 04:38] VITALS: BP 148/80
--- NOTE | 2021-08-23 04:41 | PHYS DOC ---
Past Medical History Past Medical History: GERD, Hypertension, UTI, Other Additional Past Medical Histor: NEUROPATHY Past Surgical History: Cholecystectomy, Hysterectomy, Other Additional Past Surgical Histo: L BREAST BX, dental extractions Smoking Status: Current Every Day Smoker Alcohol Use: None Drug Use: None Adult General Chief Complaint Chief Complaint: TOE PROBLEM HPI HPI Patient is a 51 year old female presenting to the emergency department for evaluation of right fourth toe and metatarsal pain after accidentally kicking some furniture while she was getting ready to come to work here this morning. She says she has neuropathy and has baseline numbness and it is not worse. Patient has discoloration to her pinky toe that she says is baseline. There is no open wounds or abrasions. Review of Systems Review of Systems Constitutional: Denies fever or chills [] Musculoskeletal: Denies back pain. + joint pain [] Integument: Denies rash or skin lesions [] Neurologic: Denies headache, focal weakness or sensory changes [] All other systems were reviewed and found to be within normal limits, except as documented in this note. Allergies Allergies Allergies Coded Allergies Type Severity Reaction Last Updated Verified codeine Adverse Reaction Severe seizures 08/23/21 Yes Physical Exam Physical Exam Constitutional: Well developed, well nourished, no acute distress, non-toxic appearance. [] Skin: Warm, dry, no erythema, no rash. [] Back: No tenderness, no CVA tenderness. [] Extremities: Right fourth toe and metatarsal tender to palpation with slight swelling noted but no erythema or warmth. Neurologic: Alert and oriented X 3, normal motor function, normal sensory function, no focal deficits noted. [] Current Patient Data Vital Signs Vital Signs Date Time Temp Pulse Resp B/P (MAP) Pulse Ox O2 Delivery O2 Flow Rate FiO2 08/23/21 04:38 98.2 71 18 148/80 (102) 96 Room Air 98.2 EKG EKG [] Radiology/Procedures Radiology/Procedures [] Course & Med Decision Making Course & Med Decision Making I offered to give her something for pain but she refused, I will get an x-ray and reassess. Patient does appear to have a proximal phalanx fracture on her fourth toe. She will be placed in a boot and is neurovascular intact status post boot placement. I recommended she follow with orthopedics as an outpatient. She agrees with plan for discharge and verbalized understanding the need for follow-up and strict ED return precaution discussed worsening pain neurologic changes or other general concerns. Dragon Disclaimer Dragon Disclaimer This electronic medical record was generated, in whole or in part, using a voice recognition dictation system. Departure Departure Impression: Primary Impression: Toe fracture, right Disposition: HOME / SELF CARE / HOMELESS Condition: STABLE Referrals: EULOGIO WOODS MD (PCP) MANOLO SARABIA II, MD Patient Instructions: Toe Fracture Scripts Hydrocodone Bit/Acetaminophen (HYDROCODONE-APAP 5-325 ) 1 Tab Tablet 1 TAB PO PRN Q6HRS PRN for PAIN, #14 TAB 0 Refills Prov: TRAMAINE TREVINO DO 08/23/21 Problem Qualifiers Primary Impression: Toe fracture, right Encounter type: initial encounter Toe: unspecified toe Fracture type: closed Fracture alignment: nondisplaced Qualified Codes: S92.911A - Unspecified fracture of right toe(s), initial encounter for closed fracture TRAMAINE TREVINO DO August 23, 2021 04:41
[2021-08-23] MEDS ORDERED: HYDR-2761 PO (05:51)
[2021-08-23] MEDS ORDERED: HYDROcodone/APAP 5/325MG 1 TAB TABLET PO ONE (06:15)
--- NOTE | 2021-08-23 12:23 | RAD ---
RIGHT FOOT AP LATERAL OBLIQUE Clinical Indication: Reason: 4th toe and metatarsal pain s/p injury / Spl. Instructions: / History: Comparison: None. Findings: There is no acute fracture or dislocation. The bony alignment is normal. Mineralization is normal. N o bony erosion. There is an os peroneum. There is no soft tissue abnormality. IMPRESSION: No acute fracture. Electronically signed by: Ousmane Escobar MD (08/23/2021 6:08 AM) [facility]
== END 2021-08-23 06:30 | disposition home or self-care (01) ==
LOC: ER 04:25
DX: S92.911A Unspecified fracture of right toe(s), initial encounter for closed fracture (principal); K21.9 Gastro-esophageal reflux disease without esophagitis; I10 Essential (primary) hypertension; F17.200 Nicotine dependence, unspecified, uncomplicated; Z88.5 Allergy status to narcotic agent; W22.09XA Striking against other stationary object, initial encounter; Y93.89 Activity, other specified; Y92.89 Other specified places as the place of occurrence of the external cause; Y99.8 Other external cause status
CPT/HCPCS: 73630; 99283